=== PATIENT | male | born 1995 | race Hispanic/Latino ===

== ENCOUNTER 2018-01-13 15:54 | Emergency (ER) | payer BC ==
[2018-01-13 15:59] VITALS: TEMP 98.5; O2SAT 100
--- NOTE | 2018-01-13 16:02 | ED PDOC ---
HPI: General Adult Time Seen by Provider: 01/13/18 16:01 Chief Complaint (Nursing): Trauma Chief Complaint (Provider): fall, etoh History Per: Patient, EMS, Family Additional Complaint(s): 23-year-old male presents for evaluation status post sustaining head injury. Patient was drinking today when he slipped down 6 stairs injuring his head. Patient's fall was witnessed by his brother and patient did sustain loss of consciousness. He arrives via ambulance. Brother is at bedside. Past Medical History Reviewed: Historical Data, Nursing Documentation, Vital Signs Vital Signs: Last Vital Signs Temp 98.5 F 01/13/18 15:56 Pulse 100 H 01/13/18 15:56 Resp 20 01/13/18 15:56 BP 119/66 01/13/18 15:56 Pulse Ox 100 01/13/18 16:16 - Medical History PMH: No Chronic Diseases - Surgical History Surgical History: No Surg Hx - Family History Family History: States: No Known Family Hx - Living Arrangements Living Arrangements: With Family - Social History Current smoker - smoking cessation education provided: Yes Alcohol: Social Drugs: Cannabis - Home Medications Home Medications: Ambulatory Orders Medication Instructions Recorded No Known Home Med 01/13/18 - Allergies Allergies/Adverse Reactions: Allergies Allergy/AdvReac Type Severity Reaction Status Date / Time No Known Allergies Allergy Verified 01/13/18 16:06 Review of Systems ROS Statement: Except As Marked, All Systems Reviewed And Found Negative Neurological: Positive for: Other (head injury with LOC) Psych: Positive for: Other (etoh) Physical Exam - Reviewed Nursing Documentation Reviewed: Yes Vital Signs Reviewed: Yes - Physical Exam Appears: Positive for: Well, Non-toxic, No Acute Distress Head Exam: Negative for: ATRAUMATIC (contusion noted to left parietal lobe) Skin: Positive for: Normal Color. Negative for: Rash Eye Exam: Positive for: Normal appearance, EOMI, PERRL ENT: Positive for: Normal ENT Inspection Neck: Positive for: Normal, Painless ROM Cardiovascular/Chest: Positive for: Regular Rate, Rhythm Respiratory: Positive for: Normal Breath Sounds. Negative for: Wheezing, Respiratory Distress Neurologic/Psych: Positive for: Alert, Other (intoxicated, answers some questions appropriately) - ECG O2 Sat by Pulse Oximetry: 100 Pulse Ox Interpretation: Normal - Other Rad CT head X-Ray: Read By Radiologist X-Ray Interpretation: no acute finding Medical Decision Making Medical Decision Makin23 y/o intoxicated male with head injury Plan: CT head CT head is negative. Patient's brothers at bedside are willing to take responsibility for patient and see that he gets home safely. The patient is stable for discharge with his brothers. Advise close observation of patient for the next 24-48 hours. Advised to return any time if acutely worse. Disposition - Clinical Impression Clinical Impression: Head injury, Alcohol intoxication - Patient ED Disposition Is Patient to be Admitted: No Counseled Patient/Family Regarding: Studies Performed, Diagnosis, Need For Followup - Disposition Referrals: [facility] [place] [Outside] Disposition: Routine/Home Disposition Time: 17:11 Condition: STABLE Additional Instructions: Ice affected area. Tylenol for pain as needed. Follow-up with primary doctor in 1-2 days. Instructions: Closed Head Injury, Head Injury Observation (DC), Alcohol Use - When Is Drinking a Problem? Forms: [employer] ([place])
[2018-01-13 17:22] VITALS: BP 136/76; PULSE 91; RESP 18
--- NOTE | 2018-01-13 18:12 | CT ---
Date of service: 01/13/2018 PROCEDURE: CT HEAD WITHOUT CONTRAST. HISTORY: trauma COMPARISON: None available. TECHNIQUE: Axial computed tomography images were obtained through the head/brain without intravenous contrast. Radiation dose: Total exam DLP = mGy-cm. This CT exam was performed using one or more of the following dose reduction techniques: Automated exposure control, adjustment of the mA and/or kV according to patient size, and/or use of iterative reconstruction technique. FINDINGS: HEMORRHAGE: No intracranial hemorrhage. BRAIN: No mass effect or edema. No atrophy or chronic microvascular ischemic changes. VENTRICLES: Unremarkable. No hydrocephalus. CALVARIUM: Unremarkable. PARANASAL SINUSES: Unremarkable as visualized. No significant inflammatory changes. MASTOID AIR CELLS: Unremarkable as visualized. No inflammatory changes. OTHER FINDINGS: None. IMPRESSION: Normal CT of the Head.
== END 2018-01-13 17:25 | disposition home or self-care (01) ==
LOC: H.ER 15:54
DX: F10.129 Alcohol abuse with intoxication, unspecified (principal); S09.90XA Unspecified injury of head, initial encounter; W19.XXXA Unspecified fall, initial encounter; Y92.89 Other specified places as the place of occurrence of the external cause